=== PATIENT | male | born 1975 | race Hispanic/Latino ===

== ENCOUNTER 2022-10-09 15:53 | Emergency (ER) | payer OTHER ==
[~2022-10-09] VITALS: Ht 170.2 cm; Wt 56.7 kg
[2022-10-09 16:49] LABS: APPEARANCE,URINE TURBID (CLEAR); BILIRUBIN,URINE NEGATIVE (NEGATIVE); COLOR,URINE YELLOW (YELLOW); GLUCOSE, URINE (UA) NEGATIVE (NEGATIVE); KETONES,URINE 60 mg/dL (NEGATIVE); LEUKOCYTE ESTERASE ,URINE 500 Leu/uL (NEGATIVE); NITRATE,URINE 2+ (NEGATIVE); OCCULT BLOOD,URINE LARGE (NEGATIVE); PROTEIN,URINE 100 mg/dL (NEGATIVE); UROBILINOGEN,URINE 0.2 mg/dL (0.2-1.0)
[2022-10-09 16:57] LABS: BACTERIA,URINE FEW /HPF (None Seen); MUCUS,URINE FEW LPF (None Seen); RBC,URINE TNTC /HPF (0-1); SQUAMOUS EPITHELIAL CELL,UR FEW /HPF (0-2); WBC,URINE TNTC /HPF (0-1)
[2022-10-09 17:30] VITALS: BP 132/74
[2022-10-09] MEDS ORDERED: CEFU500T67 PO (20:26)
[2022-10-09] MEDS ORDERED: OSEL75 PO (20:26)
[2022-10-09] MEDS ORDERED: IBUP-1493 PO (20:26)
== END 2022-10-09 21:29 | disposition home or self-care (01) ==
LOC: EDH 15:53
DX: N39.0 Urinary tract infection, site not specified (principal); J10.1 Influenza due to other identified influenza virus with other respiratory manifestations; N41.9 Inflammatory disease of prostate, unspecified; Z20.822 Contact with and (suspected) exposure to COVID-19; Z98.890 Other specified postprocedural states
CPT/HCPCS: 99283; 87635; 87077; 87088; 87186; 87804 ×2; 81001; C9803